=== PATIENT | male | born 1995 | race Hispanic/Latino ===

== ENCOUNTER 2017-11-17 07:08 | Emergency (ER) | payer SELFPAY ==
[2017-11-17] MEDS ORDERED: CYCLOBENZAPRINE 10 MG TAB ONE (07:24)
[2017-11-17] MEDS ORDERED: HYDROCODONE/APAP 10/325 TAB ONE (07:27)
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
== END 2017-11-17 09:36 | disposition home or self-care (01) ==
LOC: ER 07:08
DX: S22.080A Wedge compression fracture of T11-T12 vertebra, initial encounter for closed fracture (principal); M54.12 Radiculopathy, cervical region; V49.49XA Driver injured in collision with other motor vehicles in traffic accident, initial encounter
CPT/HCPCS: 72040; 72125; 72128; 72131; 99284